=== PATIENT | female | born 1955 | race Caucasian/White ===

== ENCOUNTER 2017-08-17 21:21 | Observation (INO) ==
[2017-08-18] MEDS ORDERED: MOM Conc 10 ML UD.LIQ PO PRN (00:17)
[2017-08-18] MEDS ORDERED: Ondansetron 4 MG/2 ML VIAL IVP PRN (00:17)
[2017-08-18] MEDS ORDERED: *HR* Morphine 2 MG/ML SYRINGE IVP PRN (00:17)
[2017-08-18] MEDS ORDERED: Acetaminophen 325 MG TABLET PO PRN (00:17)
[2017-08-18] MEDS ORDERED: Naloxone 0.4 MG/ML INJ IVP PRN (00:17)
[2017-08-18 00:57] LABS: Basophils % 0.5 %; Eosinophils % 0.4 %; Hematocrit 39.4 % (35.3-44.9); Hemoglobin 12.1 g/dL (11.5-15.4); Immature Granulocytes % 0.4 % (0-4); Lymphocytes # 2.5 K/mcL (0.6-4.6); Lymphocytes % 30.7 %; Mean Corpuscular HGB Conc 30.7 g/dL (31.6-35.5); Mean Corpuscular Hemoglobin 30.9 pg (28.0-33.3); Mean Corpuscular Volume 100.8 fL (83.0-100.0); Mean Platelet Volume 8.9 fL (9.4-12.4); Monocytes # 0.6 K/mcL (0.0-1.3); Monocytes % 7.8 %; Platelet Count 170 K/mcL (140-400); Red Blood Count 3.91 M/mcL (3.82-4.97); Red Cell Distribution Width 13.9 % (11.5-14.5); Segmented Neutrophils % 60.2 %
[2017-08-18 01:10] LABS: Calcium 8.6 mg/dL (8.6-10.8); Magnesium 1.2 mg/dL (1.6-2.6); Potassium 4.2 mEq/L (3.5-4.5)
[2017-08-18] MEDS: *HR* HYDROcodone/Acet 5/325 mg TABLET PO PRN ×2 (01:28→09:39)
--- NOTE | 2017-08-18 02:19 | Internal Med History&Physical ---
Date of Encounter: 08/18/17 Time of Encounter: 00:30 Assessment and Plan (1) Tachycardia Current visit: No Status: Acute Will place the pt into tele for observation Her tachycardia mostly due to dehydration with IV fluids already improved also started her on low dose Metoprolol 12.5mg BID Due to her ESRD will hold on IVF Pt did mention dysuria symptoms..will check UA If she develops fever, will start her on empirical abx, otherwise cont close monitoring (2) Dehydration Current visit: Yes Status: Acute already received 1 lit IVF encourage more pO intake (3) Hypertension Current visit: Yes Status: Acute stable will hold home BP meds since her BP was little low earlier Qualifiers: Qualified Code(s): I10 - Essential (primary) hypertension (4) Anxiety Current visit: Yes Status: Chronic resume home meds (5) End-stage renal disease Current visit: No Status: Chronic need HD in AM will consult Nephro in AM (6) Chronic narcotic dependence Current visit: Yes Status: Chronic resumed home meds Internal Medicine - H&P: HPI Chief complaint: Tachycardia Admitted From: Emergency Dept Plans for Post Hospital Care: Home History of present illness: Ms. Ledbetter is a 62 year old female with known PMH of ESRD on HD M /W/F, HTN, HLD , Anxiety, Chronic low back pain and narcotic dependence who had a fall recently 3 weeks ago and had small frontal hematoma now she presented to [facility] ER with generalized weakness and palpiatations. Pt seems to be having low BP in 90's HR in 120's mostly due to dehydration. She was given 1 lit fluid and her HR improved. She also mentioned she used to be on Metoprolol, which was stopped by her PCP recently. She denied any CP / SOB. No abd pain. Did mention dysuria. Past Med Surg Social Fam HX - Past Medical History Medical history: CHF, COPD, coronary artery disease, DVT, diabetes, dialysis, GI bleed, hyperlipidemia, hypertension, osteoporosis, renal disease, thyroid disease, other Psychiatric history: anxiety, depression, panic disorder, other - Past Surgical History Surgical History: cholecystectomy, orthopedic, other, other - Social History Smoking Status: Current every day smoker Smokeless Tobacco Status: No Alcohol use: none Drug use: none - Family History Father Adopted: No Family Member Ethnicity: Non- Living Status: Hx Family Cardiac Disorders: No Hx Family Respiratory Disorders: No Hx Family Cancer: Yes Hx Family GI Disorders: No Hx Family Endocrine Disorder: No Hx Family Neuromuscular Disorders: No Hx Family Neurologic Disorders: No Hx Family HEENT Disorders: No Hx Family Autoimmune Disorders: No Internal Medicine - H&P: Meds Aspirin 325 mg PO DAILY 08/23/15 [History] Carisoprodol [Soma] 350 mg PO TID 08/23/15 [History] Diazepam [Valium] 5 mg PO TID 08/23/15 [History] Duloxetine [Cymbalta] 60 mg PO DAILY 08/23/15 [History] Furosemide [Lasix] 20 mg PO DAILY 08/23/15 [History] Gabapentin [Neurontin] 100 mg PO DAILY 08/23/15 [History] Levothyroxine [Synthroid] 75 mcg PO 0630 08/23/15 [History] Niacin [Niaspan] 250 mg PO BID 08/23/15 [History] OxyCODONE/APAP 10325 [Percocet 10/325] 1 each PO QID 08/23/15 [History] Renal Vitamin [Renal Caps Softgel] 1 mg PO HS 08/23/15 [History] Roflumilast [Daliresp] 500 mcg PO DAILY 08/23/15 [History] Albuterol Sulfate [Albuterol Inhaler] 2 puff IH Q4H PRN 08/11/16 [History] Atorvastatin Calcium [Lipitor] 80 mg PO HS 08/11/16 [History] FentaNYL PATCH [Duragesic] 75 mcg TD Q72H 08/11/16 [History] Fluticasone Propionate Nasal [Flonase] 2 spr NS DAILY PRN 08/11/16 [History] Folic Acid 1 mg PO DAILY 08/11/16 [History] Ergocalciferol (VITAMIN D2) [Vitamin D] 1,000 unit PO DAILY 09/17/16 [History] Omeprazole Magnesium [Prilosec Otc] 10 mg PO BID 01/27/17 [History] Potassium Chloride [Klor-Con 10] 10 meq PO DAILY 01/27/17 [History] Promethazine [Phenergan] 12.5 mg PO Q6HR 01/27/17 [History] Docusate [Colace] 100 mg PO DAILY 06/11/17 [History] [place]-3/Dha/Epa/Fish Oil [Fish Oil 1,000 mg Softgel] 1,000 mg PO TID 06/11/17 [ History] Oxybutynin [Ditropan] 5 mg PO DAILY 06/11/17 [History] 3 Allergy/AdvReac Type Severity Reaction Status Date / Time cephalexin [From Keflex] Allergy Rash Verified 06/11/17 15:08 mushroom Allergy Difficulty Verified 06/11/17 15:08 Breathing Sulfa (Sulfonamide Allergy Rash Verified 06/11/17 15:08 Antibiotics) tramadol [From Ultram] Allergy Swelling Verified 06/11/17 15:08 of Lip/Tongue/Throat All Systems PM: A 10-system review of systems was performed and is negative for pertinent findings except as documented above in the HPI. Review of systems: All the systems are reviewed everything is benign except the systems and symptoms I mentioned in the history of present illness - Constitutional Vitals: Temp Pulse Resp BP Pulse Ox 98.4 F 92 16 137/80 97 08/17/17 23:28 08/17/17 23:28 08/17/17 23:28 08/17/17 23:28 08/17/17 23:28 General appearance: Present: A&O X 3, no acute distress, answers questions appropriately - Head Additional comments: small hematoma over frontal midline region. No cellulites / no signs of infection.. Petechial hemorrhage noticed over nose and b/l cheeks - Respiratory Respiratory exam: Present: decreased breath sounds, wheezes. Absent: rales, respiratory distress, rhonchi - Cardiovascular Cardiovascular exam: Present: RRR, +S1, +S2. Absent: systolic murmur - GI/Abdominal GI/Abdominal exam: Present: distended, normal bowel sounds, soft. Absent: rebound, rigid, tenderness - Extremities Exam Extremities exam: Present: pedal edema (trace). Absent: calf tenderness, tenderness - Back Exam Back exam: Absent: CVA tenderness (L), CVA tenderness (R) - Neurological Exam Neurological exam: Present: alert, oriented X3 - Psychiatric Psychiatric exam: Present: normal affect, normal mood Internal Med - H&P Results - Labs CBC & Chem 7: 08/18/17 00:37 08/18/17 00:37 Labs: Short CBC 08/18/17 Range/Units 00:37 WBC 8.2 (4.3-11.1) K/mcL Hgb 12.1 (11.5-15.4) g/dL Hct 39.4 (35.3-44.9) % Plt Count 170 (140-400) K/mcL Neutrophils # 5.0 (1.6-8.9) K/mcL BMP 08/18/17 00:37 Sodium 132 L Potassium 4.2 Chloride 100 Carbon Dioxide 25 BUN 15 Creatinine 2.21 H Glucose 92 Calcium 8.6 Cardiac Enzymes 08/18/17 Range/Units 00:37 Troponin I 0.02 (0-0.03) ng/mL
[2017-08-18] MEDS ORDERED: Magnesium Sulfate 2 GM in D5% in Water 100 ML IVPB ONE (05:00)
--- NOTE | 2017-08-18 08:19 | Nephrology Consult Note ---
Date of Encounter: 08/18/17 Time of Encounter: 08:17 Assessment and Plan (1) End-stage renal disease Current Visit: No Status: Chronic Patient has end-stage renal disease. She will undergo dialysis today. She has chronic hypotension in the setting of taking multiple sedating medications including narcotics, fentanyl patch, Valium, Soma, and gabapentin. These medications were starting to be weaned off by her primary care physician. All of these medications have been prescribed by her primary care physician. Patient will undergo dialysis today. (2) Hypotension Current Visit: No Status: Acute Qualifiers: Hypotension type: hypotension due to drug Qualified Code(s): I95.2 - Hypotension due to drugs (3) Chronic narcotic dependence Current Visit: Yes Status: Chronic History of Present Illness - History of Present Illness This is a 62-year-old female who has end-stage renal disease and receives dialysis every Wednesday and . For the past year or so the patient has had issues with chronic hypotension as well as somnolence when at dialysis. This has been attributed to multiple sedating medications including several narcotics which consist of Percocet and fentanyl patch as well as Soma a benzodiazepine and also gabapentin. She presented to the hospital with tachycardia. The medical record indicates that recently her metoprolol have been discontinued by her primary care physician. The patient denies this fact. She says that her primary care physician recently has started to wean her off some of her sedating and her cardiac medications. She says she was taken off the Soma. She says she is going to be weaned off the fentanyl patch. She says she is going to continue to take Percocet and Valium. The patient certainly is more alert than she typically is when she is seen in the outpatient dialysis unit. Patient did have a significant fall several weeks ago. She sustained a large area of ecchymosis on her face and forehead. There is still evidence of that on today's exam. Past Med Surg Social Fam HX - Past Medical History Medical history: CHF, COPD, coronary artery disease, DVT, diabetes, dialysis, GI bleed, hyperlipidemia, hypertension, osteoporosis, renal disease, thyroid disease, other Psychiatric history: anxiety, depression, panic disorder, other - Past Surgical History Surgical History: cholecystectomy, orthopedic, other, other - Social History Smoking Status: Current every day smoker Smokeless Tobacco Status: No Alcohol use: none Drug use: none - Family History Father Adopted: No Family Member Ethnicity: Non- Living Status: Hx Family Cardiac Disorders: No Hx Family Respiratory Disorders: No Hx Family Cancer: Yes Hx Family GI Disorders: No Hx Family Endocrine Disorder: No Hx Family Neuromuscular Disorders: No Hx Family Neurologic Disorders: No Hx Family HEENT Disorders: No Hx Family Autoimmune Disorders: No Medications and Allergies Aspirin 325 mg PO DAILY 08/23/15 [History] Diazepam [Valium] 5 mg PO TID 08/23/15 [History] Duloxetine [Cymbalta] 60 mg PO DAILY 08/23/15 [History] Furosemide [Lasix] 20 mg PO DAILY 08/23/15 [History] Gabapentin [Neurontin] 100 mg PO DAILY 08/23/15 [History] Levothyroxine [Synthroid] 75 mcg PO 0630 08/23/15 [History] Niacin [Niaspan] 250 mg PO BID 08/23/15 [History] OxyCODONE/APAP 10325 [Percocet ] 1 each PO QID 08/23/15 [History] Renal Vitamin [Renal Caps Softgel] 1 mg PO HS 08/23/15 [History] Roflumilast [Daliresp] 500 mcg PO DAILY 08/23/15 [History] Albuterol Sulfate [Albuterol Inhaler] 2 puff IH Q4H PRN 08/11/16 [History] Atorvastatin Calcium [Lipitor] 80 mg PO HS 08/11/16 [History] FentaNYL PATCH [Duragesic] 75 mcg TD Q72H 08/11/16 [History] Fluticasone Propionate Nasal [Flonase] 2 spr NS DAILY PRN 08/11/16 [History] Folic Acid 1 mg PO DAILY 08/11/16 [History] Ergocalciferol (VITAMIN D2) [Vitamin D] 1,000 unit PO DAILY 09/17/16 [History] Omeprazole Magnesium [Prilosec Otc] 20 mg PO DAILY 01/27/17 [History] Potassium Chloride [Klor-Con 10] 10 meq PO DAILY 01/27/17 [History] Docusate [Colace] 100 mg PO DAILY 06/11/17 [History] [place]-3/Dha/Epa/Fish Oil [Fish Oil 1,000 mg Softgel] 1,000 mg PO TID 06/11/17 [ History] Oxybutynin [Ditropan] 5 mg PO DAILY 06/11/17 [History] Metoprolol [Lopressor] 25 mg PO BID 08/18/17 [History] Oxybutynin Chloride [Ditropan Xl] 10 mg PO DAILY 08/18/17 [History] 3 Allergy/AdvReac Type Severity Reaction Status Date / Time cephalexin [From Keflex] Allergy Rash Verified 06/11/17 15:08 mushroom Allergy Difficulty Verified 06/11/17 15:08 Breathing Sulfa (Sulfonamide Allergy Rash Verified 06/11/17 15:08 Antibiotics) tramadol [From Ultram] Allergy Swelling Verified 06/11/17 15:08 of Lip/Tongue/Throat Review of Systems Constitutional: weakness Eyes: bilateral: blurred vision (patient denies), diplopia (patient denies) Nose, mouth and throat: no dizziness, no headache(s) Cardiovascular: dyspnea, edema Respiratory: dyspnea on exertion Gastrointestinal: no abdominal pain, no change in bowel habits Musculoskeletal: back pain Integumentary: no hirsutism, no striae Neurological: as per HPI, weakness Psychiatric: no depression, no difficulty concentrating Exam - Vital Signs Vital signs: Initial Vital Signs Temp Pulse Resp BP Pulse Ox 98.4 F 92 16 137/80 97 08/17/17 23:28 08/17/17 23:28 08/17/17 23:28 08/17/17 23:28 08/17/17 23:28 Vital Signs - Last 8 Hours Temp Pulse Resp BP Pulse Ox 08/18/17 07:20 98.0 F 84 14 104/64 96 08/18/17 03:31 97.9 F 88 16 114/75 98 Intake and Output 08/17/17 08/18/17 08/18/17 23:59 07:59 15:59 Output Total 700 / 700 Balance -700 / -700 Output: Urine 700 / 700 Other: Weight 63.684 kg Blood Glucose* 99 86 - General Appearance Exam: Patient is alert and oriented. She appears chronically ill. Neck is supple. Lungs symmetric breath sounds otherwise clear. Heart regular rhythm. Abdomen is benign. There is trace lower extremity swelling. There is a functioning AV fistula in the right upper extremity. Results - Lab Results 08/18/17 00:37 08/18/17 00:37 Most recent lab results Calcium 8.6 mg/dL (8.6-10.8) 08/18/17 00:37 Magnesium 1.2 mg/dL (1.6-2.6) L 08/18/17 00:37 Consult Discharge Plan - Plan Referrals: Khadra Baker MD [Primary Care Provider] -
[2017-08-18] MEDS ORDERED: 0.9 % Sodium Chloride 250 ML IVC PRN (08:20)
[2017-08-18 09:45] LABS: Hepatitis B Surface Antigen Nonreactive (Nonreactive)
[2017-08-18 10:28] LABS: Hepatitis B Surface Antibody 520.54 mIU/mL
--- NOTE | 2017-08-18 12:39 | Internal Med Progress Note ---
Date of Encounter: 08/18/17 Time of Encounter: 12:37 - Assessment and plan (1) End-stage renal disease Current Visit: No Status: Chronic Assessment and plan: Continue hemodialysis (2) Hypotension Current Visit: No Status: Acute Assessment and plan: Likely secondary to dehydration We will give IV fluids as needed Qualifiers: Hypotension type: hypotension due to drug Qualified Code(s): I95.2 - Hypotension due to drugs (3) Tachycardia Current Visit: No Status: Acute Assessment and plan: Possibly secondary to dehydration and beta gilbert withdrawal Resume a lower dose of metoprolol 12.5 mg twice a day, she took before 25 mg twice a day at home (4) Dehydration Current Visit: Yes Status: Acute Assessment and plan: Hold Lasix (5) Anxiety Current Visit: Yes Status: Chronic Assessment and plan: Continue Valium (6) Chronic narcotic dependence Current Visit: Yes Status: Chronic Assessment and plan: Decrease dose to 50 ug a fentanyl patch from prior dose of 75 g Minimize the use of hydrocodone - Subjective Interval history: Not for billing purposes - Constitutional Vitals: Temp Pulse Resp BP Pulse Ox 97.6 F 98 18 103/66 92 08/18/17 11:09 08/18/17 11:09 08/18/17 11:09 08/18/17 11:09 08/18/17 11:09 General appearance: Present: A&O X 3, no acute distress, answers questions appropriately Exam: Several bruises on her face - Head Head exam: Present: atraumatic, normocephalic - Eye Eye exam: Present: PERRL, conjuntiva pink, sclera anicteric Pupils: Present: PERRL - Neck Neck exam general surgery: Present: supple, trachea midline. Absent: lymphadenopathy - Respiratory Respiratory exam: Present: decreased breath sounds, CTAB. Absent: accessory muscle use, rales, rhonchi, wheezes - Cardiovascular Cardiovascular exam: Present: RRR, +S1, +S2. Absent: diastolic murmur, gallop, rubs, systolic murmur - GI/Abdominal GI/Abdominal exam: Present: normal bowel sounds, soft, no peritoneal signs. Absent: distended, tenderness - Extremities Exam Extremities exam: Present: warm, radial pulses palpable and symmetrical. Absent : calf tenderness, cyanotic, pedal edema Additional comments: Right upper extremity AV fistula - Neurological Exam Neurological exam: Present: CN II-XII intact, oriented X3, no focal deficits. Absent: pronater drift, facial droop, speech deficit - Skin Skin exam: Present: dry, intact Internal Medicine: Result - Labs CBC & Chem 7: 08/18/17 00:37 08/18/17 00:37 Labs: Short CBC 08/18/17 Range/Units 00:37 WBC 8.2 (4.3-11.1) K/mcL Hgb 12.1 (11.5-15.4) g/dL Hct 39.4 (35.3-44.9) % Plt Count 170 (140-400) K/mcL Neutrophils # 5.0 (1.6-8.9) K/mcL BMP 08/18/17 00:37 Sodium 132 L Potassium 4.2 Chloride 100 Carbon Dioxide 25 BUN 15 Creatinine 2.21 H Glucose 92 Calcium 8.6 Cardiac Enzymes 08/18/17 08/18/17 Range/Units 00:37 06:21 Troponin I 0.02 0.01 (0-0.03) ng/mL Consult Discharge Plan - Plan Referrals: Khadra Baker MD [Primary Care Provider] -
[2017-08-18] MEDS ORDERED: *HR* FentaNYL PATCH 50 MCG PATCH TD SCH (12:45)
[2017-08-18] MEDS ORDERED: *HR* HYDROcodone/Acet 5/325 mg TABLET PO PRN (14:29)
[2017-08-18] MEDS ORDERED: *HR* Dextrose 50 % in Water (Syg) 50 ML SYRINGE IVP PRN (14:47)
[2017-08-18] MEDS ORDERED: D5% in Water 1,000 ML IVC PRN (14:47)
[2017-08-18] MEDS ORDERED: Dextrose Gel 15 GM PO PRN ×2 (14:47)
[2017-08-18] MEDS ORDERED: diazePAM 5 MG TABLET PO PRN (15:00)
[2017-08-18] MEDS ORDERED: 0.9 % Sodium Chloride 1,000 ML ONE (15:37)
[2017-08-18] MEDS: Insulin LISPRO 300 UNITS/3 ML VIAL SQ SCH (17:40)
[2017-08-18] MEDS ORDERED: Insulin LISPRO 300 UNITS/3 ML VIAL SQ SCH (21:00)
[2017-08-18] MEDS ORDERED: Renal Vitamin 1 MG CAPSULE PO SCH (21:00)
[2017-08-19 05:38] LABS: Hematocrit 39.3 % (35.3-44.9); Hemoglobin 12.4 g/dL (11.5-15.4); Mean Corpuscular HGB Conc 31.6 g/dL (31.6-35.5); Mean Corpuscular Hemoglobin 32.1 pg (28.0-33.3); Mean Corpuscular Volume 101.8 fL (83.0-100.0); Mean Platelet Volume 8.9 fL (9.4-12.4); Platelet Count 148 K/mcL (140-400); Red Blood Count 3.86 M/mcL (3.82-4.97); Red Cell Distribution Width 14.2 % (11.5-14.5)
[2017-08-19 05:53] LABS: Calcium 8.7 mg/dL (8.6-10.8); Potassium 3.7 mEq/L (3.5-4.5)
[2017-08-19] MEDS: Insulin LISPRO 300 UNITS/3 ML VIAL SQ SCH ×2 (08:54→11:36)
[2017-08-19] MEDS ORDERED: Cholecalciferol (D-3) 1,000 UNIT TABLET PO SCH (09:00)
[2017-08-19] MEDS ORDERED: Folic Acid 1 MG TABLET PO SCH (09:00)
[2017-08-19] MEDS ORDERED: Gabapentin 100 MG CAPSULE PO SCH (09:00)
[2017-08-19] MEDS ORDERED: NON-FORMULARY MEDICATION 1 EACH EACH (Roflumilast [Daliresp] 500 MCG) PO SCH (09:00)
[2017-08-19] MEDS ORDERED: Aspirin Enteric Coated 325 MG Tablet PO SCH (09:00)
[2017-08-19 10:54] VITALS: BP 110/75
--- NOTE | 2017-08-19 11:16 | Nephrology Progress Note ---
Date of Encounter: 08/19/17 Time of Encounter: 11:00 - Assessment and Plan (1) End-stage renal disease Current Visit: No Status: Chronic chronic hypotension in the setting of taking multiple sedating medications. BP improved. No HD today, keeping MWF schedule. Subjective Interval history: Laying in bed, alert, oriented. Family at bedside. No new complaints. Objective - Vital Signs Vital signs: Vital Signs Temp Pulse Resp BP BP BP BP 08/19/17 10:53 98.1 F 97 17 110/75 08/19/17 07:00 98.1 F 107 18 102/67 08/19/17 04:15 98.5 F 89 17 106/68 08/19/17 00:10 98.6 F 88 16 97/61 08/18/17 19:51 99/67 113/75 95/66 08/18/17 19:45 98.1 F 89 16 99/67 08/18/17 17:45 97.5 F L 18 107/59 08/18/17 17:15 102/64 08/18/17 17:00 105/67 08/18/17 16:45 99/64 08/18/17 16:30 98/60 08/18/17 16:15 99/56 08/18/17 16:00 106/52 08/18/17 15:45 104/63 08/18/17 15:30 97/62 08/18/17 15:15 98/57 08/18/17 15:00 101/57 08/18/17 14:45 95/52 08/18/17 14:30 99/59 08/18/17 14:15 97.1 F L 18 102/61 Pulse Ox 08/19/17 10:53 90 08/19/17 07:00 90 08/19/17 04:15 90 08/19/17 00:10 90 08/18/17 19:51 08/18/17 19:45 90 08/18/17 17:45 08/18/17 17:15 08/18/17 17:00 08/18/17 16:45 08/18/17 16:30 08/18/17 16:15 08/18/17 16:00 08/18/17 15:45 08/18/17 15:30 08/18/17 15:15 08/18/17 15:00 08/18/17 14:45 08/18/17 14:30 08/18/17 14:15 Intake and Output 08/18/17 08/19/17 08/19/17 23:59 07:59 15:59 Intake Total 0 / 0 Output Total 1600 / 1600 Balance -1600 / -1600 0 / 0 Intake: Oral 0 / 0 Output: Urine 0 / 0 Total Dialysis (HD) Output 1600 / 1600 Other: Meal Breakfast Percent of Meal Consumed 0% Weight 63.7 kg Blood Glucose* 98 90 96 Hemodialysis Net Fluid Removed 1000 (mL) Patient Weight 08/19/17 23:59 Weight 63.7 kg - General Appearance General appearance: Present: well-developed, well-nourished, appears started age , obese EENT: Present: mucous membranes moist, mucous membranes dry Neck: Present: no JVD Respiratory: Present: clear Cardiology: Present: no edema, regular rate, regular rhythm Gastrointestinal: Present: normoactive bowel sounds, no tenderness Integumentary: Present: warm and dry Neurologic: Present: alert and oriented x3 Psychiatric: Present: mood/affect appropriate, cooperative - Lab 08/19/17 04:50 08/19/17 04:50 Most recent lab results Calcium 8.7 mg/dL (8.6-10.8) 08/19/17 04:50 Magnesium 1.2 mg/dL (1.6-2.6) L 08/18/17 00:37 Consult Discharge Plan - Plan Referrals: Khadra Baker MD [Primary Care Provider] - (Web Request sent 08/19/17)
--- NOTE | 2017-08-19 12:30 | Discharge Summary ---
Date of Encounter: 08/19/17 Time of Encounter: 12:26 - Discharge Diagnosis (1) Hypotension Priority: Primary Status: Acute Comments: Likely secondary to dehydration Qualifiers: Hypotension type: hypotension due to drug Qualified Code(s): I95.2 - Hypotension due to drugs (2) Tachycardia Priority: Primary Status: Acute Comments: Possibly secondary to dehydration and beta gilbert withdrawal (3) End-stage renal disease Priority: Secondary Status: Chronic (4) Dehydration Priority: Primary Status: Acute (5) Anxiety Priority: Secondary Status: Chronic (6) Chronic narcotic dependence Priority: Secondary Status: Chronic - Discharge Medications Prescriptions: Fentanyl [Duragesic] 50 mcg TD Q72H #3 patch.td72 Metoprolol [Lopressor] 12.5 mg PO BID #60 tablet Home Medications: Aspirin 325 mg PO DAILY 08/23/15 [History] Diazepam [Valium] 5 mg PO TID 08/23/15 [History] Duloxetine [Cymbalta] 60 mg PO DAILY 08/23/15 [History] Furosemide [Lasix] 20 mg PO DAILY 08/23/15 [History] Gabapentin [Neurontin] 100 mg PO DAILY 08/23/15 [History] Levothyroxine [Synthroid] 75 mcg PO 0630 08/23/15 [History] Niacin [Niaspan] 250 mg PO BID 08/23/15 [History] OxyCODONE/APAP 10325 [Percocet 10] 1 each PO QID 08/23/15 [History] Renal Vitamin [Renal Caps Softgel] 1 mg PO HS 08/23/15 [History] Roflumilast [Daliresp] 500 mcg PO DAILY 08/23/15 [History] Albuterol Sulfate [Albuterol Inhaler] 2 puff IH Q4H PRN 08/11/16 [History] Atorvastatin Calcium [Lipitor] 80 mg PO HS 08/11/16 [History] Fluticasone Propionate Nasal [Flonase] 2 spr NS DAILY PRN 08/11/16 [History] Folic Acid 1 mg PO DAILY 08/11/16 [History] Ergocalciferol (VITAMIN D2) [Vitamin D] 1,000 unit PO DAILY 09/17/16 [History] Omeprazole Magnesium [Prilosec Otc] 20 mg PO DAILY 01/27/17 [History] Potassium Chloride [Klor-Con 10] 10 meq PO DAILY 01/27/17 [History] Docusate [Colace] 100 mg PO DAILY 06/11/17 [History] [place]-3/Dha/Epa/Fish Oil [Fish Oil 1,000 mg Softgel] 1,000 mg PO TID 06/11/17 [ History] Oxybutynin [Ditropan] 5 mg PO DAILY 06/11/17 [History] Oxybutynin Chloride [Ditropan Xl] 10 mg PO DAILY 08/18/17 [History] Fentanyl [Duragesic] 50 mcg TD Q72H #3 patch.td72 08/19/17 [Rx] Metoprolol [Lopressor] 12.5 mg PO BID #60 tablet 08/19/17 [Rx] Allergies/Adverse Reactions: 3 Allergy/AdvReac Type Severity Reaction Status Date / Time cephalexin [From Keflex] Allergy Rash Verified 06/11/17 15:08 mushroom Allergy Difficulty Verified 06/11/17 15:08 Breathing Sulfa (Sulfonamide Allergy Rash Verified 06/11/17 15:08 Antibiotics) tramadol [From Ultram] Allergy Swelling Verified 06/11/17 15:08 of Lip/Tongue/Throat Procedures/tests Complete & Pending: Procedures Performed prior 72 hours Category Date Time Status ECG 12 lead ECG [ECG] AM 0600 Y 08/18/17 06:00 Ordered Date of admission: 08/17/17 23:04 Primary care physician: Khadra Baker Consults: 08/18/17 00:21 Consult to Nephrology [CONS] Routine Consulting Provider: Kieran Maxwell Reason for Consult: Known ESRD pt on HD M/W/F Call Completed: No 08/18/17 08:30 Consult to Dialysis [CONS] ONCE - Patient Status Disposition: Home, Self-Care Condition: Fair Overall status at discharge: patient is back to baseline - Discharge Instructions Follow Up With: Khadra Baker MD [Primary Care Provider] - (Web Request sent 08/19/17) Additional Instructions: Follow-up with primary care physician within the next 7 days. Continue hemodialysis as an outpatient. Continue metoprolol 12.5 g twice a day, decrease dose of fentanyl patch down to 50 g every 72 hours, minimize the use of narcotics. Quit smoking - Diet and Activity Activity: increase activity as tolerated Diet: diabetic diet Hospital course: Ms. Ledbetter is a 62 year old female PMH of COPD oxygen dependent, coronary artery disease, DVT, diabetes [id number], dialysis, GI bleed, hyperlipidemia, hypertension, osteoporosis, ESRD on HD M /W/F, HTN, HLD, Anxiety , Chronic low back pain and narcotic dependence who had a fall recently 3 weeks ago and had small frontal hematoma, she presented to [facility] ER with generalized weakness and palpiatations. Pt seems to be having low BP in 90's HR in 120's mostly due to dehydration. She was given 1 lit fluid and her HR improved. She also mentioned she used to be on Metoprolol, which was stopped by her PCP recently. Was continued on hemodialysis during her hospitalization We resumed a lower dose of metoprolol 12.5 mg twice a day, she took before 25 mg twice a day at home, which was stopped Decrease dose to 50 ug a fentanyl patch (from prior dose of 75 g) to avoid somnolence. Time spent discussing smoking cessation with patient: 3 to 10 minutes - Time Spent with Patient Total time spent providing and/or coordinating discharge services: Greater than 30 minutes (40 min) - Constitutional Vitals: Temp Pulse Resp BP Pulse Ox 98.1 F 97 17 110/75 90 08/19/17 10:53 08/19/17 10:53 08/19/17 10:53 08/19/17 10:53 08/19/17 10:53 General appearance: Present: A&O X 3, no acute distress, answers questions appropriately Exam: Several bruises on her face, small for head hematoma - Head Head exam: Present: atraumatic, normocephalic - Eye Eye exam: Present: PERRL, conjuntiva pink, sclera anicteric Pupils: Present: PERRL - Neck Neck exam general surgery: Present: supple, trachea midline. Absent: lymphadenopathy - Respiratory Respiratory exam: Present: decreased breath sounds, CTAB. Absent: accessory muscle use, rales, rhonchi, wheezes - Cardiovascular Cardiovascular exam: Present: RRR, +S1, +S2. Absent: diastolic murmur, gallop, rubs, systolic murmur - GI/Abdominal GI/Abdominal exam: Present: normal bowel sounds, soft, no peritoneal signs. Absent: distended, tenderness - Extremities Exam Extremities exam: Present: warm, radial pulses palpable and symmetrical. Absent : calf tenderness, cyanotic, pedal edema Additional comments: Right upper extremity AV fistula - Neurological Exam Neurological exam: Present: CN II-XII intact, oriented X3, no focal deficits. Absent: pronater drift, facial droop, speech deficit - Skin Skin exam: Present: dry, intact
--- NOTE | 2017-08-19 12:38 | Physician Discharge Referral ---
Home Health/Hosp Referral Info Transfer to: Home Health Provider in Charge Post Discharge: PCP - Diagnosis (1) Hypotension Status: Acute (2) Tachycardia Status: Acute (3) End-stage renal disease Status: Chronic (4) Dehydration Status: Acute (5) Anxiety Status: Chronic (6) Chronic narcotic dependence Status: Chronic - Respiratory Orders Smoking Cessation: Smoking cessation has been advised. For more information, call the [place] Tobacco Quit Line at 0-140-GLIX-NOW. - Diet/Nutrition Diet/Nutrition Orders: Renal - Services Needed Following services are medically necessary services: Home Health Aide, Physical Therapy Home Care Orders: Follow-up with primary care physician within the next 7 days. Continue hemodialysis as an outpatient. Continue metoprolol 12.5 g twice a day, decrease dose of fentanyl patch down to 50 g every 72 hours, minimize the use of narcotics. Quit smoking - Transfer Medications Prescriptions: Fentanyl [Duragesic] 50 mcg TD Q72H #3 patch.td72 Metoprolol [Lopressor] 12.5 mg PO BID #60 tablet Home Medications: Aspirin 325 mg PO DAILY 08/23/15 [History] Diazepam [Valium] 5 mg PO TID 08/23/15 [History] Duloxetine [Cymbalta] 60 mg PO DAILY 08/23/15 [History] Furosemide [Lasix] 20 mg PO DAILY 08/23/15 [History] Gabapentin [Neurontin] 100 mg PO DAILY 08/23/15 [History] Levothyroxine [Synthroid] 75 mcg PO 0630 08/23/15 [History] Niacin [Niaspan] 250 mg PO BID 08/23/15 [History] OxyCODONE/APAP 10/325 [Percocet 10/325] 1 each PO QID 08/23/15 [History] Renal Vitamin [Renal Caps Softgel] 1 mg PO HS 08/23/15 [History] Roflumilast [Daliresp] 500 mcg PO DAILY 08/23/15 [History] Albuterol Sulfate [Albuterol Inhaler] 2 puff IH Q4H PRN 08/11/16 [History] Atorvastatin Calcium [Lipitor] 80 mg PO HS 08/11/16 [History] Fluticasone Propionate Nasal [Flonase] 2 spr NS DAILY PRN 08/11/16 [History] Folic Acid 1 mg PO DAILY 08/11/16 [History] Ergocalciferol (VITAMIN D2) [Vitamin D] 1,000 unit PO DAILY 09/17/16 [History] Omeprazole Magnesium [Prilosec Otc] 20 mg PO DAILY 01/27/17 [History] Potassium Chloride [Klor-Con 10] 10 meq PO DAILY 01/27/17 [History] Docusate [Colace] 100 mg PO DAILY 06/11/17 [History] [place]-3/Dha/Epa/Fish Oil [Fish Oil 1,000 mg Softgel] 1,000 mg PO TID 06/11/17 [ History] Oxybutynin [Ditropan] 5 mg PO DAILY 06/11/17 [History] Oxybutynin Chloride [Ditropan Xl] 10 mg PO DAILY 08/18/17 [History] Fentanyl [Duragesic] 50 mcg TD Q72H #3 patch.td72 08/19/17 [Rx] Metoprolol [Lopressor] 12.5 mg PO BID #60 tablet 08/19/17 [Rx] Allergies/Adverse Reactions: 3 Allergy/AdvReac Type Severity Reaction Status Date / Time cephalexin [From Keflex] Allergy Rash Verified 06/11/17 15:08 mushroom Allergy Difficulty Verified 06/11/17 15:08 Breathing Sulfa (Sulfonamide Allergy Rash Verified 06/11/17 15:08 Antibiotics) tramadol [From Ultram] Allergy Swelling Verified 06/11/17 15:08 of Lip/Tongue/Throat Certification: Further, I certify that my clinical findings support that this patient is homebound (i.e. absences from home require considerable and taxing effort and are for medical reasons or yazidi services or infrequently or short duration when for other reasons) because: Homebound Reason: Patient requires assistance of a person or device to safely leave home Attestation: My signature below is to certify that this patient is under my care and that I, or nurse practitioner, or a physician's lead dental assistant working with me, has a face-to -face encounter with this patient.
== END 2017-08-19 15:35 | disposition home health service (06) ==
LOC: 2ANU
PROVIDERS: ADMIT Family Medicine; ATTEND Internal Medicine